=== PATIENT | male | born 1975 | race Caucasian/White ===

== ENCOUNTER 2021-11-23 21:00 | Inpatient (IN) | payer MEDICAID ==
[~2021-11-23] VITALS: Ht 157.5 cm; Wt 69.9 kg
[2021-11-23] MEDS ORDERED: FAMOTIDINE 20MG/2ML VIAL IV ONE (21:30)
[2021-11-23] MEDS ORDERED: DIPHENHYDRAMINE 50MG/ML VIAL IV ONE (21:30)
[2021-11-23] MEDS ORDERED: METHYLPREDNISOLONE SOD SUCC 125 MG/2 ML VIAL IV ONE (21:30)
[2021-11-23] MEDS ORDERED: SODIUM CHLORIDE 0.9% 1,000 ML IV SCH (21:30)
[2021-11-23 21:34] LABS: BASOPHILS % 1.1 % (0.0-2.0); EOSINOPHILS % 1.1 % (0.0-5.0); HEMATOCRIT. 44.3 % (42.0-52.0); LYMPHOCYTES % 35.3 % (20.0-50.0); MEAN CORPUSCULAR HEMOGLOBIN 31.9 pg (28.0-32.0); MEAN CORPUSCULAR VOLUME 94.4 fL (80.0-94.0); MEAN PLATELET VOLUME 9.1 fl (7.4-10.4); MONOCYTES % 3.1 % (2.0-8.0); NEUTROPHILS % 59.4 % (40.0-76.0); PLATELET 288 x1000/uL (130-400); RED BLOOD CELL COUNT 4.69 mill/uL (4.7-6.1); RED CELL DISTRIBUTION WIDTH 12.7 % (11.6-14.6)
[2021-11-23 21:41] LABS: CHLORIDE 106 mEq/L (98-107)
[2021-11-24] MEDS ORDERED: ACETAMINOPHEN 325MG TABLET PO PRN ×2
[2021-11-24] MEDS ORDERED: GUAIFENESIN 200MG/10ML SUGAR FREE UDC PO PRN
[2021-11-24] MEDS ORDERED: IPRATROPIUM/ALBUTEROL 0.5-3(2.5)MG/3ML NEB NEB PRN
[2021-11-24] MEDS ORDERED: CLONIDINE 0.1MG TABLET PO PRN
[2021-11-24] MEDS ORDERED: ONDANSETRON HCL 4MG/2ML INJ IV PRN
[2021-11-24] MEDS ORDERED: MAGNESIUM/ALUMINUM HYDROXIDE/SIMETHICONE 30ML UDC PO PRN
[2021-11-24] MEDS ORDERED: HYDROCODONE/ACETAMINOPHEN 5/325MG TABLET PO PRN
[2021-11-24 06:26] LABS: BASOPHILS % 0.8 % (0.0-2.0); HEMATOCRIT. 40.6 % (42.0-52.0); HEMOGLOBIN. 13.8 g/dL (14.0-18.0); MEAN CORPUSCULAR HEMOGLOBIN 32.1 pg (28.0-32.0); MEAN CORPUSCULAR VOLUME 94.9 fL (80.0-94.0); MEAN PLATELET VOLUME 9.1 fl (7.4-10.4); MONOCYTES % 0.8 % (2.0-8.0); NEUTROPHILS % 86.4 % (40.0-76.0); PLATELET 248 x1000/uL (130-400); RED BLOOD CELL COUNT 4.28 mill/uL (4.7-6.1); RED CELL DISTRIBUTION WIDTH 12.9 % (11.6-14.6)
[2021-11-24 06:32] LABS: CHLORIDE 109 mEq/L (98-107)
[2021-11-24 06:37] LABS: PHOSPHORUS 3.3 mg/dL (2.5-4.9)
[2021-11-24] MEDS ORDERED: ENOXAPARIN 40MG/0.4ML SYR SUBCUT SCH (09:00)
[2021-11-24] MEDS ORDERED: DIPHENHYDRAMINE 50MG CAPSULE PO NR (17:30)
[2021-11-24] MEDS ORDERED: NALOXONE HCL 0.4MG/ML VIAL IV PRN (17:45)
[2021-11-24 18:00] VITALS: BP 112/63
[2021-11-24] MEDS ORDERED: MED4 MT (18:26)
[2021-11-24] MEDS ORDERED: PREDNISONE 20MG TABLET PO NR (18:30)
[2021-11-24] MEDS ORDERED: MED4 PO (19:26)
[2021-11-24] MEDS ORDERED: CETI10TA6 PO (19:26)
[2021-11-24 20:00] VITALS: BP 112/73
[2021-11-24 21:18] VITALS: BP 112/73
== END 2021-11-24 20:50 | disposition home or self-care (01) | DRG 811 ==
LOC: ER 21:00 → MICUSO 23:08 → SUPCPDRO 23:15 → 8WST 11-24 17:37
PROVIDERS: ADMIT Internal Medicine; ATTEND Internal Medicine
DX: T78.2XXA Anaphylactic shock, unspecified, initial encounter (principal); F17.200 Nicotine dependence, unspecified, uncomplicated; T78.3XXA Angioneurotic edema, initial encounter; Z20.822 Contact with and (suspected) exposure to COVID-19
CPT/HCPCS: 36415; 71045; 80048; 80053; 83735; 84100; 85025; 87426; 93005; 99285; J1200; J1650; J2930; J3490; J7512; Q0163